=== PATIENT | male | born 1960 | race American Indian/Alaskan Native ===

== ENCOUNTER 2016-09-27 20:01 | Observation (INO) | payer SELFPAY ==
[2016-09-27 20:01] VITALS: BMI 30.8
--- NOTE | 2016-09-27 20:31 | C.PDOC ---
History Of Present Illness 55 year old male presents to the ED via EMS due to alcohol intoxication. Patient was refused admission to [facility] due to intoxication and has no complaints at this time. Chief Complaint (Nursing): Substance Abuse History Per: Patient, EMS History/Exam Limitations: no limitations Onset/Duration Of Symptoms: Hrs Current Symptoms Are (Timing): Still Present Suicide/Self Injury Attempted (Context): None Modifying Factor(s): Alcohol Severity: Mild Past Medical History Reviewed: Historical Data, Nursing Documentation, Vital Signs Vital Signs: Last Vital Signs Temp 98.9 F 09/27/16 23:51 Pulse 85 09/28/16 03:44 Resp 20 09/28/16 03:44 BP 132/70 09/28/16 03:44 Pulse Ox 99 09/28/16 03:44 - Medical History PMH: HIV, HTN - [facility] Procedures CONTINUOUS INVASIVE MECHANICAL VENTILATION =/>96 CONSEC HRS (08/24/14) INSERT ENDOTRACHEAL TUBE (08/24/14) Family History: States: Unknown Family Hx - Social History Hx Tobacco Use: No Hx Alcohol Use: Yes Hx Substance Use: No - Immunization History Hx Tetanus Toxoid Vaccination: No Hx Influenza Vaccination: No Hx Pneumococcal Vaccination: No Review Of Systems Except As Marked, All Systems Reviewed And Found Negative. Constitutional: Positive for: Other (+Intoxication). Negative for: Fever, Chills Cardiovascular: Negative for: Chest Pain Respiratory: Negative for: Shortness of Breath Gastrointestinal: Negative for: Abdominal Pain Neurological: Negative for: Weakness, Numbness Physical Exam - Physical Exam Appears: Non-toxic, No Acute Distress, Other (+Intoxicated +AOB. No signs of injury.) Skin: Normal Color, Warm, Dry Head: Atraumatic, Normacephalic Eye(s): bilateral: Normal Inspection Oral Mucosa: Moist Chest: Symmetrical Cardiovascular: Rhythm Regular Respiratory: Normal Breath Sounds, No Accessory Muscle Use Extremity: Normal ROM Neurological/Psych: Oriented x3 ED Course And Treatment - Laboratory Results Result Diagrams: 09/27/16 20:45 09/27/16 20:45 O2 Sat by Pulse Oximetry: 96 (Room air) Pulse Ox Interpretation: Normal ED OBSERVATION Date of observation admission: 09/27/16 Time of observation admission: 20:33 - Observation admission statement Patient is being placed in observation because:: Acute alcohol intoxication. - Goals of Observation Goals of observation are:: Sobriety. Disposition Counseled Patient/Family Regarding: Diagnosis - Disposition Disposition: HOME/ ROUTINE Disposition Time: 06:30 Condition: STABLE - POA Present On Arrival: None - Clinical Impression Clinical Impression: Alcohol abuse - Scribe Statement The provider has reviewed the documentation as recorded by the Scribe Robert Amador. Provider Attestation: All medical record entries made by the Scribe were at my direction and personally dictated by me. I have reviewed the chart and agree that the record accurately reflects my personal performance of the history, physical exam, medical decision making, and the department course for this patient. I have also personally directed, reviewed, and agree with the discharge instructions and disposition.
[2016-09-27 21:01] LABS: BASO % 0.5 % (0.0-2.0); EOS # 0.1 K/uL (0.0-0.7); EOS % 2.9 % (0.0-4.0); HEMATOCRIT 41.8 % (35.0-51.0); MEAN CELL VOLUME 84.2 fL (80.0-94.0); MEAN CORPUSCULAR HEMOGLOBIN 27.8 pg (27.0-31.0); MEAN PLATELET VOLUME 9.2 fL (7.2-11.7); MONO # 0.2 K/uL (0.0-0.8); MONO % 5.2 % (0.0-10.0); NRBC % 0.1 % (0.0-2.0); RED CELL DISTRIBUTION WIDTH 15.2 % (11.5-14.5); WHITE BLOOD COUNT 4.7 K/uL (4.8-10.8)
[2016-09-27 21:09] LABS: CHLORIDE 100 mmol/L (98-107); POTASSIUM 3.4 mmol/L (3.6-5.2); SODIUM 144 mmol/L (132-148)
[2016-09-27 21:11] LABS: GFR AFRICAN-AMERICAN > 60
[2016-09-27 21:12] LABS: ALB/GLOB RATIO 0.9 (1.0-2.1); ALKALINE PHOSPHATASE 89 U/L (38-126); ALT/SGPT 27 U/L (21-72); AST/SGOT 45 U/L (17-59); BILIRUBIN,TOTAL 0.2 mg/dL (0.2-1.3); BLOOD UREA NITROGEN 24 mg/dL (9-20); CARBON DIOXIDE 30 mmol/L (22-30); GLUCOSE,RANDOM 89 mg/dL (75-110); TOTAL PROTEIN 8.1 g/dL (6.3-8.3)
[2016-09-27 21:26] LABS: ALCOHOL SERUM 360 mg/dl (0-10)
[2016-09-27 23:52] VITALS: RESP 20; TEMP 98.9
[2016-09-28 06:14] VITALS: BP 142/68; PULSE 91; O2SAT 99
== END 2016-09-28 06:30 | disposition home or self-care (01) ==
LOC: C.ER 20:01 → C.9OBSV 20:55
PROVIDERS: ADMIT Emergency Medicine; ATTEND Emergency Medicine
DX: F10.129 Alcohol abuse with intoxication, unspecified (principal); I10 Essential (primary) hypertension; Z21 Asymptomatic human immunodeficiency virus [HIV] infection status

== ENCOUNTER 2016-10-28 22:30 | Observation (INO) | payer SELFPAY ==
[2016-10-28 22:31] VITALS: BMI 30.8
[2016-10-28 22:41] VITALS: TEMP 97.7; O2SAT 98
--- NOTE | 2016-10-28 22:49 | C.PDOC ---
History Of Present Illness The patient, a 55y/o male, presents to the ED for public alcohol intoxication for an unknown duration. Patient is familiar to the ED and has had many prior evaluations concerning alcohol intoxication. Patient admits to drinking earlier today. He denies suicidal/homicidal ideation and has no physical complaints at this time. Time Seen by Provider: 10/28/16 22:34 Chief Complaint (Nursing): Substance Abuse History Per: Patient History/Exam Limitations: intoxication Onset/Duration Of Symptoms: Unknown Current Symptoms Are (Timing): Still Present Suicide/Self Injury Attempted (Context): None Modifying Factor(s): Alcohol Associated Symptoms: denies: Suicidal Thoughts, Suicidal Plan Involuntary Hold By: None Recent travel outside of the [place]: No Additional History Per: Patient Past Medical History Reviewed: Historical Data, Nursing Documentation, Vital Signs Vital Signs: Last Vital Signs Temp 97.7 F 10/28/16 22:36 Pulse 84 10/28/16 22:36 Resp 20 10/28/16 22:36 BP 170/84 H 10/28/16 22:36 Pulse Ox 98 10/28/16 23:15 - Medical History PMH: HIV, HTN Surgical History: No Surg Hx - [facility] Procedures CONTINUOUS INVASIVE MECHANICAL VENTILATION =/>96 CONSEC HRS (08/24/14) INSERT ENDOTRACHEAL TUBE (08/24/14) Family History: States: Unknown Family Hx - Social History Hx Tobacco Use: No Hx Alcohol Use: Yes Hx Substance Use: No - Immunization History Hx Tetanus Toxoid Vaccination: No Hx Influenza Vaccination: No Hx Pneumococcal Vaccination: No Review Of Systems Except As Marked, All Systems Reviewed And Found Negative. Constitutional: Positive for: Other (+alcohol intoxication ) Psych: Negative for: Suicidal ideation Physical Exam - Physical Exam Additional Physical Exam Comments: Constitutional: No acute distress. Visibly intoxicated. Head: Normocephalic. Atraumatic. Eyes: PERRL. ENT: Moist mucous membranes. Alcohol on breath. Neck: Supple. Cardiovascular: Regular rate. Radial pulse 2+ bilaterally. Chest: No tenderness. Respiratory: Clear to auscultation bilaterally. GI: Soft. Nontender. Nondistended. Back: No CVA tenderness. Musculoskeletal: No tenderness or swelling of extremities. Skin: No rash. Neurologic: Arousable to touch and verbal stimuli. ED Course And Treatment O2 Sat by Pulse Oximetry: 98 (on RA) Pulse Ox Interpretation: Normal ED OBSERVATION Date of observation admission: 10/28/16 Time of observation admission: 23:15 - Observation admission statement Patient is being placed in observation because:: alcohol intoxication - Goals of Observation Goals of observation are:: sobriety - Progress Note Progress Note: 10/28/16 23:15 patient is resting comfortably, vitals are stable. 10/29/16 00:00 Will sign out to ER night team pending sobriety. Disposition - Disposition Disposition Time: 01:00 Condition: STABLE - Clinical Impression Clinical Impression: Alcohol intoxication - Scribe Statement The provider has reviewed the documentation as recorded by the Scribe (Bambi Quevedo) Provider Attestation: All medical record entries made by the Scribe were at my direction and personally dictated by me. I have reviewed the chart and agree that the record accurately reflects my personal performance of the history, physical exam, medical decision making, and the department course for this patient. I have also personally directed, reviewed, and agree with the discharge instructions and disposition.
[2016-10-29 05:42] VITALS: RESP 16
[2016-10-29 05:43] VITALS: BP 136/89; PULSE 84
== END 2016-10-29 05:32 | disposition home or self-care (01) ==
LOC: C.ER 22:30 → C.9OBSV 23:13
PROVIDERS: ADMIT Student in an Organized Health Care Education/Training Program; ATTEND Student in an Organized Health Care Education/Training Program
DX: F10.129 Alcohol abuse with intoxication, unspecified (principal); Y90.9 Presence of alcohol in blood, level not specified
CPT/HCPCS: G0378 ×2

== ENCOUNTER 2017-09-02 22:09 | Emergency (ER) | payer MEDICAID ==
[2017-09-02 22:09] VITALS: BMI 30.8
== END 2017-09-02 22:30 | disposition left against medical advice (07) ==
LOC: C.ER 22:09
DX: Z02.89 Encounter for other administrative examinations (principal); F10.129 Alcohol abuse with intoxication, unspecified

== ENCOUNTER 2017-09-02 23:45 | Emergency (ER) | payer MEDICAID ==
[2017-09-02 23:46] VITALS: BMI 30.8
[2017-09-03 00:27] VITALS: TEMP 97.5
[2017-09-03 00:56] VITALS: BP 157/86; PULSE 58; RESP 20; O2SAT 96
--- NOTE | 2017-09-03 01:08 | C.PDOC ---
History Of Present Illness 56 year old male presents to the ED for evaluation of acute alcohol intoxcation. Patient is poor historian due to alcohol intoxication. Last drink just prior to arrival. Patient states that he has elevated blood pressure and complains of headache. He denies chest pain. Chief Complaint (Nursing): High Blood Pressure History Per: Patient History/Exam Limitations: intoxication Onset/Duration Of Symptoms: Unknown Current Symptoms Are (Timing): Still Present Recent travel outside of the [place]: No Past Medical History Reviewed: Historical Data, Nursing Documentation, Vital Signs Vital Signs: Last Vital Signs Temp 97.5 F L 09/03/17 00:22 Pulse 58 L 09/03/17 00:55 Resp 20 09/03/17 00:55 BP 157/86 H 09/03/17 00:55 Pulse Ox 96 09/03/17 03:04 - Medical History PMH: HIV, HTN - [facility] Procedures CONTINUOUS INVASIVE MECHANICAL VENTILATION =/>96 CONSEC HRS (08/24/14) INSERT ENDOTRACHEAL TUBE (08/24/14) Family History: States: Unknown Family Hx - Social History Hx Tobacco Use: No Hx Alcohol Use: Yes Hx Substance Use: No - Immunization History Hx Tetanus Toxoid Vaccination: No Hx Influenza Vaccination: No Hx Pneumococcal Vaccination: No Review Of Systems Review Of Systems: ROS cannot be obtained secondary to pt's inabilty to answer questions. (alcohol intoxication) Neurological: Positive for: Headache Physical Exam - Physical Exam Appears: Non-toxic, No Acute Distress, Unkempt Skin: Normal Color, Warm, Dry Head: Atraumatic, Normacephalic Eye(s): bilateral: Normal Inspection, PERRL, EOMI Oral Mucosa: Moist, Other (Alcohol on breath) Neck: Normal, Normal ROM, Supple Chest: Symmetrical Cardiovascular: Rhythm Regular (Rate Regular ) Respiratory: Normal Breath Sounds, No Rales, No Rhonchi, No Wheezing Gastrointestinal/Abdominal: Soft, No Tenderness Back: Normal Inspection Extremity: Normal ROM, No Deformity Extremity: Bilateral: Atraumatic Neurological/Psych: Other (Somnolent but arousable to verbal stimuli, moving all extremities ) Gait: Unsteady ED Course And Treatment O2 Sat by Pulse Oximetry: 96 Progress Note: Patient resting comfortably. All vital signs stable. Will discharge home, Disposition Counseled Patient/Family Regarding: Diagnosis - Disposition Referrals: [facility] at [facility] [Outside] Disposition: HOME/ ROUTINE Disposition Time: 01:05 Condition: STABLE Instructions: High Blood Pressure in Adults, Alcohol Abuse and Alcoholism (DC) Forms: [employer] (Niuean) - POA Present On Arrival: None - Clinical Impression Clinical Impression: Hypertension, Alcohol abuse - Scribe Statement The provider has reviewed the documentation as recorded by the Scribe Provider Attestation: All medical record entries made by the Scribe were at my direction and personally dictated by me. I have reviewed the chart and agree that the record accurately reflects my personal performance of the history, physical exam, medical decision making, and the department course for this patient. I have also personally directed, reviewed, and agree with the discharge instructions and disposition.
== END 2017-09-03 01:26 | disposition home or self-care (01) ==
LOC: C.ER 23:45
DX: I10 Essential (primary) hypertension (principal); F10.10 Alcohol abuse, uncomplicated

== ENCOUNTER 2017-11-20 01:36 | Emergency (ER) | payer MEDICAID ==
[2017-11-20 01:37] VITALS: BMI 30.8
[2017-11-20 01:45] VITALS: BP 133/87; PULSE 76; RESP 18; TEMP 98.5; O2SAT 99
--- NOTE | 2017-11-20 02:26 | C.PDOC ---
History Of Present Illness 57 year old male presents to the ED c/o left ear pain. Patient reports he was cleaning his ears when the cotton from the Q-Tip got stuck in his left ear. Patient denies fever, chills, nausea, vomiting, ear discharge, earache or headache. Time Seen by Provider: 11/20/17 01:52 Chief Complaint (Nursing): Foreign Body History Per: Patient History/Exam Limitations: None Onset/Duration Of Symptoms: Hrs Current Symptoms Are (Timing): Gone Quality (Ear): Foreign Body Severity: None Anticoagulant/Antiplatlet Use?: No Recent Aspirin Use: No Past Medical History Reviewed: Historical Data, Nursing Documentation, Vital Signs Vital Signs: Last Vital Signs Temp 98.5 F 11/20/17 01:42 Pulse 76 11/20/17 01:42 Resp 18 11/20/17 01:42 BP 133/87 11/20/17 01:42 Pulse Ox 99 11/20/17 03:39 - Medical History PMH: HIV, HTN Surgical History: No Surg Hx - [facility] Procedures CONTINUOUS INVASIVE MECHANICAL VENTILATION =/>96 CONSEC HRS (08/24/14) INSERT ENDOTRACHEAL TUBE (08/24/14) Family History: States: Unknown Family Hx - Social History Hx Tobacco Use: No Hx Alcohol Use: Yes Hx Substance Use: No - Immunization History Hx Tetanus Toxoid Vaccination: No Hx Influenza Vaccination: No Hx Pneumococcal Vaccination: No Review Of Systems Constitutional: Negative for: Fever, Chills ENT: Positive for: Ear Pain Gastrointestinal: Negative for: Vomiting Neurological: Negative for: Headache, Dizziness Physical Exam - Physical Exam Appears: Non-toxic, No Acute Distress Skin: Normal Color, Warm, Dry Head: Atraumatic, Normacephalic Eye(s): bilateral: Normal Inspection, PERRL, EOMI Ear(s): Left: Other (FB visualized), Right: Normal Nose: No Discharge Oral Mucosa: Moist Neck: Normal ROM, Supple Cardiovascular: Rhythm Regular Respiratory: Normal Breath Sounds Neurological/Psych: Oriented x3, Normal Speech Gait: Steady ED Course And Treatment O2 Sat by Pulse Oximetry: 99 (ON RA) Pulse Ox Interpretation: Normal Progress Note: Patient had FB stuck in his left ear which was removed using an alligator forceps. 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 - Scribe Statement The provider has reviewed the documentation as recorded by the Scribe Eliel Ardon All medical record entries made by the Kelleyibe were at my direction and personally dictated by me. I have reviewed the chart and agree that the record accurately reflects my personal performance of the history, physical exam, medical decision making, and the department course for this patient. I have also personally directed, reviewed, and agree with the discharge instructions and disposition.
== END 2017-11-20 02:33 | disposition home or self-care (01) ==
LOC: C.ER 01:36
DX: T16.2XXA Foreign body in left ear, initial encounter (principal); X58.XXXA Exposure to other specified factors, initial encounter; Y93.E8 Activity, other personal hygiene

== ENCOUNTER 2017-12-19 17:06 | Emergency (ER) | payer MEDICAID ==
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
[2017-12-19 23:36] VITALS: BP 136/82; PULSE 86; RESP 16; TEMP 98.6; O2SAT 97
== END 2017-12-19 23:34 | disposition home or self-care (01) ==
LOC: EDBD → EDSEX → MERGE 17:06 → EDUNIT# 17:06 → UNMERGE 17:06 → EDBD 17:06 → C.ER 17:06
DX: F10.129 Alcohol abuse with intoxication, unspecified (principal)

== ENCOUNTER 2018-01-09 19:35 | Emergency (ER) | payer MEDICAID ==
[2018-01-09 19:35] VITALS: BMI 30.8
[2018-01-09 19:44] VITALS: RESP 14; TEMP 98; O2SAT 98
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
[2018-01-09 22:06] VITALS: BP 130/70; PULSE 80
--- NOTE | 2018-01-10 08:55 | RAD ---
PROCEDURE: Left Ankle Radiographs. HISTORY: fall COMPARISON: None FINDINGS: BONES: No fracture appreciated. Trace dorsal minimal hyperostoses suggested JOINTS: Normal. No osteoarthritis. Ankle mortise maintained. Talar dome intact SOFT TISSUES: Lateral perimalleolar soft tissue swelling present . OTHER FINDINGS: None. IMPRESSION: Soft tissue swelling. No fracture or dislocation appreciated .
== END 2018-01-09 22:06 | disposition home or self-care (01) ==
LOC: C.ER 19:35
DX: S93.402A Sprain of unspecified ligament of left ankle, initial encounter (principal); I10 Essential (primary) hypertension

== ENCOUNTER 2018-01-22 03:35 | Emergency (ER) | payer MEDICAID ==
[2018-01-22 03:35] VITALS: BMI 30.8
[2018-01-22 04:05] VITALS: O2SAT 96
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
[2018-01-22 06:31] VITALS: BP 126/85; PULSE 61; RESP 16; TEMP 97.9
== END 2018-01-22 07:01 | disposition home or self-care (01) ==
LOC: C.ER 03:35
DX: F10.129 Alcohol abuse with intoxication, unspecified (principal); I10 Essential (primary) hypertension

== ENCOUNTER 2018-01-28 22:38 | Emergency (ER) | payer MEDICAID ==
[2018-01-28 22:38] VITALS: BMI 30.8
[2018-01-28 22:44] VITALS: TEMP 97.9
--- NOTE | 2018-01-29 00:45 | C.PDOC ---
History Of Present Illness 57 y/o homeless male brought in by ambulance due to public intoxication. Patient has a PMHx of alcohol abuse, and admits to drinking today. Records demonstrate recent evaluation for the same on 01/09. Otherwise patient offers no physical complaints. Denies any SI/HI. No obvious signs of trauma. Time Seen by Provider: 01/28/18 23:14 Chief Complaint (Nursing): Substance Abuse History Per: Patient History/Exam Limitations: intoxication Onset/Duration Of Symptoms: Hrs Current Symptoms Are (Timing): Still Present Suicide/Self Injury Attempted (Context): None Modifying Factor(s): Alcohol Past Medical History Reviewed: Historical Data, Nursing Documentation, Vital Signs Vital Signs: Last Vital Signs Temp 97.9 F 01/28/18 22:41 Pulse 78 01/28/18 23:26 Resp 12 01/28/18 23:26 BP 178/85 H 01/28/18 23:26 Pulse Ox 96 01/29/18 00:47 - Medical History PMH: HIV, HTN Surgical History: No Surg Hx - [facility] Procedures CONTINUOUS INVASIVE MECHANICAL VENTILATION =/>96 CONSEC HRS (08/24/14) INSERT ENDOTRACHEAL TUBE (08/24/14) Family History: States: Unknown Family Hx - Social History Hx Tobacco Use: No Hx Alcohol Use: Yes Hx Substance Use: No - Immunization History Hx Tetanus Toxoid Vaccination: No Hx Influenza Vaccination: No Hx Pneumococcal Vaccination: No Review Of Systems Review Of Systems: ROS cannot be obtained secondary to pt's inabilty to answer questions. Physical Exam - Physical Exam Appears: Non-toxic, No Acute Distress, Other (Large male, intoxicated, +AOB) Skin: Normal Color, Warm, Dry Head: Atraumatic, Normacephalic Eye(s): bilateral: Normal Inspection Oral Mucosa: Moist Neck: Normal ROM Chest: Symmetrical Cardiovascular: Rhythm Regular, No Murmur Respiratory: Normal Breath Sounds, No Rales, No Rhonchi, No Wheezing Gastrointestinal/Abdominal: Soft, No Tenderness, No Distention Extremity: Bilateral: Atraumatic, Normal Color And Temperature, Normal ROM Pulses: Left Dorsalis Pedis: Normal, Right Dorsalis Pedis: Normal Neurological/Psych: Other (Awake, alert, responsive to questions) ED Course And Treatment O2 Sat by Pulse Oximetry: 96 (RA) Pulse Ox Interpretation: Normal Progress Note: Patient is resting comfortably in stretcher, no acute distress. Will d/c home when clinically sober. Medical Decision Making Medical Decision Making: typical alcoholic/intox/homeless no acute issues many presentations for same no w/u indicated at this time pending sobriety Disposition - Disposition Disposition Time: 01:00 Condition: GOOD Forms: [facility] (Austrian) - Clinical Impression Clinical Impression: Alcohol abuse - Scribe Statement The provider has reviewed the documentation as recorded by the Scribe (Denise Bhatia) Provider Attestation: All medical record entries made by the Scribe were at my direction and personally dictated by me. I have reviewed the chart and agree that the record accurately reflects my personal performance of the history, physical exam, medical decision making, and the department course for this patient. I have also personally directed, reviewed, and agree with the discharge instructions and disposition. Physician Patient Turnover Patient Signed Over To: Priya Sheehan Handoff Comments: dispo as appropriate in AM when sober
[2018-01-29 05:05] VITALS: BP 154/70; PULSE 60; RESP 18; O2SAT 99
== END 2018-01-29 05:04 | disposition home or self-care (01) ==
LOC: C.ER 22:38
DX: F10.10 Alcohol abuse, uncomplicated (principal)

== ENCOUNTER 2018-01-29 16:19 | Emergency (ER) | payer MEDICAID ==
[2018-01-29 16:20] VITALS: BMI 30.8
[2018-01-29 17:30] LABS: BASO # 0.1 K/uL (0.0-0.2); BASO % 1.1 % (0.0-2.0); EOS % 0.7 % (0.0-4.0); HEMOGLOBIN 13.1 g/dL (12.0-18.0); LYMPH # 2.4 K/uL (1.0-4.3); LYMPH % 43.9 % (20.0-40.0); MEAN CELL VOLUME 86.9 fL (80.0-94.0); MEAN CORPUSCULAR HEMOGLOBIN 29.7 pg (27.0-31.0); MEAN CORPUSCULAR HGB CONC 34.2 g/dL (33.0-37.0); MEAN PLATELET VOLUME 9.4 fL (7.2-11.7); MONO # 0.3 K/uL (0.0-0.8); MONO % 4.9 % (0.0-10.0); NEUT # 2.7 K/uL (1.8-7.0); NEUT % 49.4 % (50.0-75.0); NRBC % 0.1 % (0.0-2.0); RBC 4.43 Mil/uL (4.40-5.90); RED CELL DISTRIBUTION WIDTH 13.4 % (11.5-14.5); WHITE BLOOD COUNT 5.4 K/uL (4.8-10.8)
[2018-01-29 17:45] LABS: ALB/GLOB RATIO 1.1 (1.0-2.1); ALT/SGPT 27 U/L (21-72); AST/SGOT 48 U/L (17-59); BLOOD UREA NITROGEN 20 mg/dL (9-20); CALCIUM 8.3 mg/dl (8.6-10.4); GFR AFRICAN-AMERICAN > 60; GFR NON-AFRICAN AMERICAN 53
[2018-01-29 18:04] LABS: SQUAMOUS EPITHIAL 1 /hpf (0-5); URINE BILIRUBIN NEGATIVE (NEGATIVE); URINE BLOOD 1+ (NEGATIVE); URINE CLARITY Clear (Clear); URINE COLOR Straw (YELLOW); URINE GLUCOSE (UA) NORMAL (Normal); URINE HYALINE CAST 0-2 /lpf (0-2); URINE LEUKOCYTE ESTERASE NEG Leu/uL (Negative); URINE PROTEIN NEGATIVE (NEGATIVE); URINE UROBILINOGEN NORMAL mg/dL (0.2-1.0)
[2018-01-29 18:15] LABS: BARBITURATES, UR NEGATIVE (NEGATIVE); BENZODIAZEPINES, UR NEGATIVE (NEGATIVE); OPIATES, UR NEGATIVE (NEGATIVE); PHENCYCLIDINE, UR NEGATIVE (NEGATIVE)
--- NOTE | 2018-01-29 18:21 | C.PDOC ---
History Of Present Illness 57yo male, PMHx includes alcohol abuse, presents to the emergency department requesting detox. patient admits to drinking [employer]. Denies SI/HI. Time Seen by Provider: 01/29/18 16:58 Chief Complaint (Nursing): Substance Abuse History Per: Patient History/Exam Limitations: no limitations Past Medical History Reviewed: Historical Data, Nursing Documentation, Vital Signs Vital Signs: Last Vital Signs Temp 98.5 F 01/29/18 16:24 Pulse 97 H 01/29/18 16:24 Resp 20 01/29/18 16:24 BP 147/85 01/29/18 16:24 Pulse Ox 97 01/29/18 18:21 - Medical History PMH: HIV, HTN - [facility] Procedures CONTINUOUS INVASIVE MECHANICAL VENTILATION =/>96 CONSEC HRS (08/24/14) INSERT ENDOTRACHEAL TUBE (08/24/14) Family History: States: No Known Family Hx - Social History Hx Tobacco Use: No Hx Alcohol Use: Yes Hx Substance Use: No - Immunization History Hx Tetanus Toxoid Vaccination: No Hx Influenza Vaccination: No Hx Pneumococcal Vaccination: No Review Of Systems Constitutional: Negative for: Fever Cardiovascular: Negative for: Chest Pain Respiratory: Negative for: Shortness of Breath Psych: Negative for: Psychosis, Suicidal ideation, Withdrawal Physical Exam - Physical Exam Appears: Non-toxic, No Acute Distress Skin: Normal Color, Warm, Dry, No Rash Head: Atraumatic, Normacephalic Eye(s): bilateral: Normal Inspection, PERRL, EOMI Nose: Normal Lips: Normal Appearing Neck: Normal ROM Cardiovascular: Rhythm Regular, No Murmur Respiratory: Normal Breath Sounds, No Accessory Muscle Use Gastrointestinal/Abdominal: Soft, No Tenderness Extremity: Normal ROM, No Deformity, No Swelling Neurological/Psych: Oriented x3, Normal Speech ED Course And Treatment - Laboratory Results Result Diagrams: 01/29/18 17:27 01/29/18 17:27 O2 Sat by Pulse Oximetry: 97 (RA) Pulse Ox Interpretation: Normal Medical Decision Making Medical Decision Making: alcohol intoxication/detox - case s/o to Dr. Salas at 1900 pending crisis evaluation and disposition Patient is medically cleared for crisis Disposition - Disposition Disposition Time: 19:00 Condition: FAIR Forms: [employer] [facility] (Serbian) - Clinical Impression Clinical Impression: Alcohol abuse - Scribe Statement The provider has reviewed the documentation as recorded by the Scribe (Yunier Bowser) All medical record entries made by the Scribe were at my direction and personally dictated by me. I have reviewed the chart and agree that the record accurately reflects my personal performance of the history, physical exam, medical decision making, and the department course for this patient. I have also personally directed, reviewed, and agree with the discharge instructions and disposition. Physician Patient Turnover Patient Signed Over To: Natan Salas Handoff Comments: pending crisis evaluation
[2018-01-29 19:32] VITALS: BP 126/73; PULSE 78; RESP 18; TEMP 98.4; O2SAT 98
== END 2018-01-29 19:33 | disposition home or self-care (01) ==
LOC: C.ER 16:19
DX: F10.10 Alcohol abuse, uncomplicated (principal); Y90.8 Blood alcohol level of 240 mg/100 ml or more

== ENCOUNTER 2018-02-11 01:30 | Emergency (ER) | payer MEDICAID ==
[2018-02-11 01:31] VITALS: BMI 30.8
--- NOTE | 2018-02-11 02:19 | C.PDOC ---
History Of Present Illness 57 year old male is brought to the ED by EMS for alcohol intoxication. Patient was found at [facility] terminal intoxicated. Patient admits ti drinking alcohol today and states he does not have a place to go. Patient denies SI/HI, hallucinations, CP, SOB, trauma, injury, fall. Time Seen by Provider: 02/11/18 01:43 Chief Complaint (Nursing): Substance Abuse History Per: Patient, EMS History/Exam Limitations: intoxication Onset/Duration Of Symptoms: Hrs Current Symptoms Are (Timing): Still Present Suicide/Self Injury Attempted (Context): None Modifying Factor(s): Alcohol Associated Symptoms: denies: Depression, Suicidal Thoughts, Suicidal Plan Involuntary Hold By: None Recent travel outside of the [place]: No Additional History Per: Patient, EMS Past Medical History Reviewed: Historical Data, Nursing Documentation, Vital Signs Vital Signs: Last Vital Signs Temp 98 F 02/11/18 01:38 Pulse 68 02/11/18 01:38 Resp 18 02/11/18 01:38 BP 158/96 H 02/11/18 01:38 Pulse Ox 97 02/11/18 02:19 - Medical History PMH: HIV, HTN Surgical History: No Surg Hx - [facility] Procedures CONTINUOUS INVASIVE MECHANICAL VENTILATION =/>96 CONSEC HRS (08/24/14) INSERT ENDOTRACHEAL TUBE (08/24/14) Family History: States: Unknown Family Hx - Social History Hx Tobacco Use: No Hx Alcohol Use: Yes Hx Substance Use: No - Immunization History Hx Tetanus Toxoid Vaccination: No Hx Influenza Vaccination: No Hx Pneumococcal Vaccination: No Review Of Systems Except As Marked, All Systems Reviewed And Found Negative. Psych: Negative for: Depression, Suicidal ideation Physical Exam - Physical Exam Additional Physical Exam Comments: Constitutional: No acute distress. Head: Normocephalic. Atraumatic. Eyes: PERRL. ENT: Moist mucous membranes. Neck: Supple. Cardiovascular: Regular rate. Radial pulses 2+ bilaterally. Chest: No tenderness. Respiratory: Clear to auscultation bilaterally. GI: Soft. Nontender. Nondistended. Back: No CVA tenderness. Musculoskeletal: No tenderness or swelling of extremities. Skin: No rash. Neurologic: Alert, no focal deficit. ED Course And Treatment O2 Sat by Pulse Oximetry: 97 (ON RA) Pulse Ox Interpretation: Normal Medical Decision Making Medical Decision Making: Will observe and then discharge when sober. Disposition - Disposition Referrals: Non [facility] Provider, [Primary Care Provider] - Disposition: HOME/ ROUTINE Disposition Time: 03:31 Condition: STABLE Instructions: Alcohol Abuse and Alcoholism (DC) Forms: [facility] (Andorran) - Clinical Impression Clinical Impression: Alcohol intoxication - Scribe Statement The provider has reviewed the documentation as recorded by the Scribe Eliel Ardon All medical record entries made by the Scribe were at my direction and personally dictated by me. I have reviewed the chart and agree that the record accurately reflects my personal performance of the history, physical exam, medical decision making, and the department course for this patient. I have also personally directed, reviewed, and agree with the discharge instructions and disposition.
[2018-02-11 05:47] VITALS: BP 136/85; PULSE 82; RESP 18; TEMP 98.2; O2SAT 97
== END 2018-02-11 06:08 | disposition home or self-care (01) ==
LOC: C.ER 01:30 → SUPCPDRO 01:30 → C.ER 06:08
DX: F10.129 Alcohol abuse with intoxication, unspecified (principal); Y90.9 Presence of alcohol in blood, level not specified

== ENCOUNTER 2018-03-06 19:24 | Emergency (ER) | payer MEDICAID ==
[2018-03-06 19:24] VITALS: BMI 30.8
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
[2018-03-07 05:45] VITALS: BP 168/71; PULSE 79; RESP 29; TEMP 98; O2SAT 98
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
== END 2018-03-07 05:46 | disposition home or self-care (01) ==
LOC: C.ER 19:24
DX: F10.129 Alcohol abuse with intoxication, unspecified (principal); S02.81XA Fracture of other specified skull and facial bones, right side, initial encounter for closed fracture; Y04.0XXA Assault by unarmed brawl or fight, initial encounter; G93.9 Disorder of brain, unspecified; I10 Essential (primary) hypertension; Z21 Asymptomatic human immunodeficiency virus [HIV] infection status

== ENCOUNTER 2018-04-10 19:50 | Emergency (ER) | payer MEDICAID ==
[2018-04-10 19:50] VITALS: BMI 30.8
[2018-04-10 21:26] VITALS: O2SAT 98
--- NOTE | 2018-04-10 21:58 | C.PDOC ---
History Of Present Illness 57 year old male is brought to the ED for alcohol intoxication. Patient states he has high blood pressure. Patient reports he has not take his medications for the past few days. Patient denies fever, chills, headache, visual changes, nausea, vomit, CP, palpitations, weakness, numbness. Chief Complaint (Nursing): Substance Abuse History Per: Patient History/Exam Limitations: intoxication Onset/Duration Of Symptoms: Days Current Symptoms Are (Timing): Still Present Modifying Factor(s): Alcohol Associated Symptoms: denies: Depression, Suicidal Thoughts, Suicidal Plan Recent travel outside of the [place]: No Additional History Per: Patient Past Medical History Reviewed: Historical Data, Nursing Documentation, Vital Signs Vital Signs: Last Vital Signs Temp 98.7 F 04/10/18 21:18 Pulse 85 04/10/18 21:18 Resp 20 04/10/18 21:18 BP 165/114 H 04/10/18 21:18 Pulse Ox 98 04/10/18 21:18 - Medical History PMH: HIV, HTN Surgical History: No Surg Hx - [facility] Procedures CONTINUOUS INVASIVE MECHANICAL VENTILATION =/>96 CONSEC HRS (08/24/14) INSERT ENDOTRACHEAL TUBE (08/24/14) Family History: States: Unknown Family Hx - Social History Hx Tobacco Use: No Hx Alcohol Use: Yes Hx Substance Use: No - Immunization History Hx Tetanus Toxoid Vaccination: No Hx Influenza Vaccination: No Hx Pneumococcal Vaccination: No Review Of Systems Constitutional: Negative for: Fever, Chills Eyes: Negative for: Vision Change Cardiovascular: Negative for: Chest Pain, Palpitations Respiratory: Negative for: Shortness of Breath Gastrointestinal: Negative for: Nausea, Vomiting Skin: Negative for: Rash Neurological: Negative for: Weakness, Numbness Physical Exam - Physical Exam Appears: Non-toxic, No Acute Distress, Other (AOB) Skin: Normal Color, Warm, Dry Head: Atraumatic, Normacephalic Eye(s): bilateral: Normal Inspection Oral Mucosa: Moist Neck: Normal ROM, Supple Chest: Symmetrical Cardiovascular: Rhythm Regular Respiratory: Normal Breath Sounds, No Rales, No Rhonchi, No Wheezing Gastrointestinal/Abdominal: Soft, No Tenderness, No Guarding, No Rebound Extremity: Normal ROM, No Tenderness, No Swelling Neurological/Psych: Oriented x3, Normal Speech Gait: Steady ED Course And Treatment O2 Sat by Pulse Oximetry: 98 (ON RA) Pulse Ox Interpretation: Normal Medical Decision Making Medical Decision Making: Plan: * Lopressor 100 mg PO * Disposition Counseled Patient/Family Regarding: Diagnosis - Disposition Referrals: [facility] [Outside] Disposition: HOME/ ROUTINE Disposition Time: 22:54 Condition: STABLE Instructions: High Blood Pressure (DC), Alcohol Abuse and Alcoholism (DC) Forms: [employer] [facility] (American) - POA Present On Arrival: None - Clinical Impression Clinical Impression: Alcohol abuse, Alcohol intoxication, Hypertension - Scribe Statement The provider has reviewed the documentation as recorded by the Scribe Eliel Ardon All medical record entries made by the Scribe were at my direction and personally dictated by me. I have reviewed the chart and agree that the record accurately reflects my personal performance of the history, physical exam, medical decision making, and the department course for this patient. I have also personally directed, reviewed, and agree with the discharge instructions and disposition.
[2018-04-10 23:09] VITALS: BP 144/68; PULSE 74; RESP 16; TEMP 97.7
== END 2018-04-10 23:23 | disposition home or self-care (01) ==
LOC: C.ER 19:50
DX: F10.129 Alcohol abuse with intoxication, unspecified (principal); Y90.9 Presence of alcohol in blood, level not specified; I10 Essential (primary) hypertension

== ENCOUNTER 2018-05-14 16:14 | Emergency (ER) | payer MEDICAID ==
[2018-05-14 16:15] VITALS: BMI 30.8
--- NOTE | 2018-05-14 18:19 | C.PDOC ---
History Of Present Illness 57 y/o male brought to the ED by ambulance after he was found intoxicated lying in the street. Patient admits to drinking alcohol today. Denies any falls or other complaints. No evidence of trauma. Time Seen by Provider: 05/14/18 16:51 Chief Complaint (Nursing): Substance Abuse History Per: Patient History/Exam Limitations: intoxication Onset/Duration Of Symptoms: Hrs Current Symptoms Are (Timing): Still Present Modifying Factor(s): Alcohol Involuntary Hold By: None Past Medical History Reviewed: Historical Data, Nursing Documentation, Vital Signs Vital Signs: Last Vital Signs Temp 97.8 F 05/14/18 16:53 Pulse 92 H 05/14/18 16:53 Resp 20 05/14/18 16:53 BP 186/89 H 05/14/18 16:53 Pulse Ox 97 05/14/18 16:53 - Medical History PMH: HIV, HTN Surgical History: No Surg Hx - [facility] Procedures CONTINUOUS INVASIVE MECHANICAL VENTILATION =/>96 CONSEC HRS (08/24/14) INSERT ENDOTRACHEAL TUBE (08/24/14) Family History: States: Unknown Family Hx - Social History Hx Tobacco Use: Yes Hx Alcohol Use: Yes Hx Substance Use: No - Immunization History Hx Tetanus Toxoid Vaccination: No Hx Influenza Vaccination: No Hx Pneumococcal Vaccination: No Review Of Systems Except As Marked, All Systems Reviewed And Found Negative. Constitutional: Negative for: Fever Cardiovascular: Negative for: Chest Pain Respiratory: Negative for: Shortness of Breath Gastrointestinal: Negative for: Vomiting, Abdominal Pain Skin: Negative for: Lesions, Bruising Neurological: Negative for: Weakness, Numbness Psych: Positive for: Other (Alcohol intoxication). Negative for: Suicidal ideation Physical Exam - Physical Exam Appears: No Acute Distress, Unkempt, Other (+ Alcohol on breath) Skin: Warm, Dry Head: Atraumatic, Normacephalic Eye(s): bilateral: Normal Inspection Oral Mucosa: Moist Neck: Normal ROM, Supple Chest: Symmetrical Cardiovascular: Rhythm Regular, No Murmur Respiratory: Normal Breath Sounds, No Accessory Muscle Use Gastrointestinal/Abdominal: Soft, No Tenderness, No Distention Extremity: Bilateral: Atraumatic, Normal Color And Temperature Neurological/Psych: Oriented x3, Normal Speech (speaking in full sentences), Normal Cranial Nerves ED Course And Treatment O2 Sat by Pulse Oximetry: 97 (RA) Pulse Ox Interpretation: Normal Medical Decision Making Medical Decision Making: Plan: * will monitor in the ED for clinical sobriety 21:38 On reevaluation patient is awake, alert, with clear speech, ambulating in the ED with steady gait. No complaints offered. Patient is stable for discharge home. Patient's BP was 158/88 stable for D/C Disposition Counseled Patient/Family Regarding: Studies Performed, Diagnosis, Need For Followup - Disposition Disposition: HOME/ ROUTINE Disposition Time: 21:43 Condition: STABLE Additional Instructions: DIPESH MONREAL, thank you for letting us take care of you today. Your provider was Alysha Montanez MD and you were treated for SUBSTANCE ABUSE. The emergency medical care you received today was directed at your acute symptoms. If you were prescribed any medication, please fill it and take as directed. It may take several days for your symptoms to resolve. Return to the Emergency Department if your symptoms worsen, do not improve, or if you have any other problems. Please contact your doctor or call one of the physicians/clinics you have been referred to that are listed on the Patient Visit Information form that is included in your discharge packet. Bring any paperwork you were given at discharge with you along with any medications you are taking to your follow up visit. Our treatment cannot replace ongoing medical care by a primary care provider outside of the emergency department. Thank you for allowing the [facility] team to be part of your care today. Instructions: Alcohol Abuse and Alcoholism (DC) Forms: W[place]in (Wolof), General Discharge Instructions - POA Present On Arrival: None - Clinical Impression Clinical Impression: Alcohol intoxication - Scribe Statement The provider has reviewed the documentation as recorded by the Bruce Bhatia Provider Attestation: All medical record entries made by the Bruce were at my direction and personally dictated by me. I have reviewed the chart and agree that the record accurately reflects my personal performance of the history, physical exam, medical decision making, and the department course for this patient. I have also personally directed, reviewed, and agree with the discharge instructions and disposition.
[2018-05-14 21:54] VITALS: BP 158/88; PULSE 86; RESP 16; TEMP 97.9
[2018-05-14 21:56] VITALS: O2SAT 97
== END 2018-05-14 21:54 | disposition home or self-care (01) ==
LOC: C.ER 16:14
DX: F10.129 Alcohol abuse with intoxication, unspecified (principal)

== ENCOUNTER 2018-06-25 13:32 | Observation (INO) | payer MEDICAID ==
[2018-06-25 13:32] VITALS: BMI 30.8
[2018-06-25] MEDS ORDERED: Multivitamin (MVI) 10 ML, Thiamine 100 MG, Folic Acid 1 MG in Sodium Chloride 0.9% 1,00... IV ONE (13:48)
[2018-06-25] MEDS ORDERED: Potassium Chloride 20 mEq ER Tab PO STA (13:50)
--- NOTE | 2018-06-25 14:11 | C.PDOC ---
History Of Present Illness 57 y/o male with a PMHx of HTN, HIV, and alcohol abuse, presents today with complaints of generalized weakness and intermittent chest pain. Patient went to [facility] for a check-up where his blood pressure was found to be elevated and he was instructed to come to the ER for further evaluation. Otherwise he denies any SOB, headache, dizziness, palpitations, nausea, vomiting, or fever. Patients only compliant is generalized weakness, which he states he always has. He reports compliance with his medications. Patient was at the clinic to get medical clearance to begin a substance abuse program. PMD: [facility] Time Seen by Provider: 06/25/18 13:38 Chief Complaint (Nursing): Chest Pain History Per: Patient History/Exam Limitations: no limitations Onset/Duration Of Symptoms: Days Current Symptoms Are (Timing): Still Present Past Medical History Reviewed: Historical Data, Nursing Documentation, Vital Signs Vital Signs: Last Vital Signs Temp 97 F L 06/25/18 13:38 Pulse 79 06/25/18 14:02 Resp 20 06/25/18 14:02 BP 177/80 H 06/25/18 14:02 Pulse Ox 100 06/25/18 14:02 - Medical History PMH: HIV, HTN - [facility] Procedures CONTINUOUS INVASIVE MECHANICAL VENTILATION =/>96 CONSEC HRS (08/24/14) INSERT ENDOTRACHEAL TUBE (08/24/14) Family History: States: CAD - Social History Hx Tobacco Use: Yes Hx Alcohol Use: Yes (daily) Hx Substance Use: No - Immunization History Hx Tetanus Toxoid Vaccination: No Hx Influenza Vaccination: No Hx Pneumococcal Vaccination: No Review Of Systems Except As Marked, All Systems Reviewed And Found Negative. Constitutional: Positive for: Weakness (generalized). Negative for: Fever, Chills Cardiovascular: Negative for: Chest Pain, Palpitations Respiratory: Negative for: Shortness of Breath Gastrointestinal: Negative for: Nausea, Vomiting Neurological: Negative for: Numbness, Incoordination, Change in Speech, Confusion, Altered Mental Status, Headache, Dizziness Physical Exam - Physical Exam Appears: Non-toxic, No Acute Distress, Other (Tired-appearing) Skin: Warm, Dry Head: Atraumatic, Normacephalic Eye(s): bilateral: Normal Inspection, PERRL, EOMI Oral Mucosa: Moist Lips: Normal Appearing Neck: Normal ROM Lymphatic: No Adenopathy Chest: Symmetrical Cardiovascular: Rhythm Regular (and bradycardic), No Murmur Respiratory: Normal Breath Sounds, No Rales, No Rhonchi, No Wheezing Gastrointestinal/Abdominal: Soft, No Tenderness, No Distention Back: Normal Inspection, No Decreased ROM Extremity: Normal ROM, No Pedal Edema Pulses: Left Radial: Normal, Right Radial: Normal Neurological/Psych: Oriented x3, Normal Motor, Normal Sensation ED Course And Treatment - Laboratory Results Result Diagrams: 06/25/18 14:05 06/25/18 14:05 ECG: Interpreted By Me ECG Rhythm: Sinus Bradycardia Interpretation Of ECG: diffusely flattened T waves Rate From EC O2 Sat by Pulse Oximetry: 100 (RA) Pulse Ox Interpretation: Normal Medical Decision Making Medical Decision Making: Records reviewed: Reviewed EKG from the clinic showing HR of 43, with a prolonged QT interval of 461. Impression: Weakness, Chest Pain, Bradycardia, Uncontrolled HTN Plan: --EKG --CMP --Troponin I --Pro-BNP --Phosphorous --Magnesium --Alcohol serum --CBC --PTT/PT --Urinalysis --Chest x-ray --IV fluids, banana bag --topical NTG --325 mg Aspirin PO --Reassess EKG: Sinus Bradycardia, at 55 bpm, with diffusely flattened T waves Chest X-Ray: FINDINGS: LUNGS: Hyperinflation may be seen in setting of COPD. No focal consolidation. Bilateral lower lobe nodular opacities favored to represent nipple shadows. Please note that chest x-ray has limited sensitivity for the detection of pulmonary masses. PLEURA: No significant pleural effusion identified. No definite pneumothorax . CARDIOVASCULAR: Heart size appears within normal limits. No atherosclerotic calcification present. OSSEOUS STRUCTURES: Degenerative changes. VISUALIZED UPPER ABDOMEN: Eventration of the right hemidiaphragm. OTHER FINDINGS: None. IMPRESSION: Hyperinflation may be seen in the setting of COPD. Bilateral lower lobe nodular opacities favored to represent nipple shadows. Additional findings as above. Labs demonstrate hypokalemia, but are otherwise unremarkable. Replenished with potassium chloride, 20meq PO and 20 meq IVPB. 15:[address] Kent, patient to be admitted to medical service for hospitalization for chest pain, hypokalemia, and uncontrolled hypertension. Disposition Counseled Patient/Family Regarding: Studies Performed, Diagnosis - Disposition Disposition: HOSPITALIZED Disposition Time: 15:39 Condition: GUARDED - Clinical Impression Clinical Impression: HTN (hypertension), Hypokalemia, Chest pain - Scribe Statement The provider has reviewed the documentation as recorded by the Scribkimani Bhatia Provider Attestation: All medical record entries made by the Kelleyibe were at my direction and persona lly dictated by me. I have reviewed the chart and agree that the record accurately reflects my personal performance of the history, physical exam, medical decision making, and the department course for this patient. I have also personally directed, reviewed, and agree with the discharge instructions and disposition.
[2018-06-25 14:17] LABS: PROTHROMBIN TIME 11.4 SECONDS (9.7-12.2)
[2018-06-25 14:18] LABS: BASO % 0.4 % (0.0-2.0); EOS # 0.1 K/uL (0.0-0.7); EOS % 2.1 % (0.0-4.0); HEMOGLOBIN 13.7 g/dL (12.0-18.0); LYMPH # 1.6 K/uL (1.0-4.3); LYMPH % 37.4 % (20.0-40.0); MEAN CORPUSCULAR HGB CONC 33.3 g/dL (33.0-37.0); MEAN PLATELET VOLUME 10.1 fL (7.2-11.7); MONO # 0.4 K/uL (0.0-0.8); MONO % 8.9 % (0.0-10.0); NEUT # 2.2 K/uL (1.8-7.0); NEUT % 51.2 % (50.0-75.0); NRBC % 0.1 % (0.0-2.0); RBC 4.73 Mil/uL (4.40-5.90); RED CELL DISTRIBUTION WIDTH 13.8 % (11.5-14.5); WHITE BLOOD COUNT 4.4 K/uL (4.8-10.8)
[2018-06-25 14:31] LABS: ALBUMIN 3.5 g/dL (3.5-5.0); ALT/SGPT 25 U/L (21-72); AST/SGOT 28 U/L (17-59); BLOOD UREA NITROGEN 17 mg/dL (9-20); CALCIUM 8.1 mg/dl (8.6-10.4); GFR NON-AFRICAN AMERICAN > 60
[2018-06-25 14:37] LABS: B-TYPE NATRIURETIC PEPTIDE 255 pg/mL (0-900)
--- NOTE | 2018-06-25 14:40 | RAD ---
HISTORY: SOB COMPARISON: Chest x-ray performed 09/07/14 TECHNIQUE: Chest PA and lateral FINDINGS: LUNGS: Hyperinflation may be seen in setting of COPD. No focal consolidation. Bilateral lower lobe nodular opacities favored to represent nipple shadows. Please note that chest x-ray has limited sensitivity for the detection of pulmonary masses. PLEURA: No significant pleural effusion identified. No definite pneumothorax . CARDIOVASCULAR: Heart size appears within normal limits. No atherosclerotic calcification present. OSSEOUS STRUCTURES: Degenerative changes. VISUALIZED UPPER ABDOMEN: Eventration of the right hemidiaphragm. OTHER FINDINGS: None. IMPRESSION: Hyperinflation may be seen in the setting of COPD. Bilateral lower lobe nodular opacities favored to represent nipple shadows. Additional findings as above.
[2018-06-25] MEDS ORDERED: Potassium Chloride 20 mEq ER Tab PO ONE (14:46)
[2018-06-25] MEDS ORDERED: Potassium Chloride 20 mEq 100 ML ONE (15:14)
[2018-06-25] MEDS ORDERED: Nitroglycerin 2% Ointment Foilpak UD TOP STA (15:36)
[2018-06-25] MEDS ORDERED: Aspirin 325 mg EC Tablets PO STA (15:36)
[2018-06-25] MEDS ORDERED: Aspirin 325 mg EC Tablets PO ONE (15:54)
[2018-06-25] MEDS ORDERED: Nitroglycerin 2% Ointment Foilpak UD TOP ONE (15:54)
--- NOTE | 2018-06-25 17:00 | CP.PCM.HP ---
History of Present Illness - History of Present Illness History of Present Illness: PGY-1 Medicine H&P for Dr. Kent Patient is a 57 year old male with past medical history of HTN, HIV, and alcohol abuse presenting to ED from [facility] for uncontrolled hypertension and hypokalemia. Patient states he was at clinic to obtain medical clearance for substance abuse program. Blood pressure was el evated, labs were abnormal, and he was told to come to the ED. He denies any chest pain, palpitations, shortness of breath, or dizziness currently. When asked if he felt chest pain or palpitations while at the clinic, he denied. No other acute somatic complaints at this time. Denies fevers/chills, headaches, dizziness, abdominal pain, nausea/vomiting/diarrhea/constipation, dysuria, or changes in stool. PMHx: uncontrolled HTN, HIV, alcohol abuse requiring intubation in past PSHx: intubated (08/2014) Allergies: NKDA FHx: CAD, [place]--mother, from [place] Social Hx: + alcohol--days vary. can drink anywhere from 1 shot of liquor/day to 1-1.5 pints; + tobacco: 5-10 cigarettes/day; denies illicit drug use PMD: Dr. Denise Allen (?); also follows up at [facility] Present on Admission - Present on Admission Any Indicators Present on Admission: No Review of Systems - Review of Systems All systems: reviewed and no additional remarkable complaints except Review of Systems: as per HPI Past Patient History - Infectious Disease Hx of Infectious Diseases: None - Tetanus Immunizations Tetanus Immunization: Unknown - Past Social History Smoking Status: Heavy Smoker > 10 Cigarettes Daily - CARDIAC Hx Hypertension: Yes - PULMONARY Hx Tuberculosis: No - NEUROLOGICAL HX Cerebrovascular Accident: No - HEMATOLOGICAL/ONCOLOGICAL Hx Human Immunodeficiency Virus (HIV): Yes - MUSCULOSKELETAL/RHEUMATOLOGICAL Hx Falls: No - PSYCHIATRIC Hx Substance Use: No - SURGICAL HISTORY Hx Surgeries: No - ANESTHESIA Hx Anesthesia: No Meds Allergies/Adverse Reactions: Allergies Allergy/AdvReac Type Severity Reaction Status Date / Time No Known Allergies Allergy Verified 06/25/18 13:41 Physical Exam - Constitutional Appears: No Acute Distress, Other Additional comments: drowsy but arousable - Head Exam Head Exam: ATRAUMATIC, NORMAL INSPECTION, NORMOCEPHALIC - Eye Exam Eye Exam: EOMI, Normal appearance, PERRL - ENT Exam ENT Exam: Normal Exam - Neck Exam Neck exam: Positive for: Full Rom, Normal Inspection - Respiratory Exam Respiratory Exam: Clear to Auscultation Bilateral, NORMAL BREATHING PATTERN. absent: Accessory Muscle Use, Rales, Rhonchi, Wheezes, Respiratory Distress, Stridor - Cardiovascular Exam Cardiovascular Exam: Bradycardia, +S1, +S2 - GI/Abdominal Exam GI & Abdominal Exam: Normal Bowel Sounds, Soft. absent: Distended, Firm, Guarding, Organomegaly, Rebound, Rigid, Tenderness - Neurological Exam Neurological exam: Alert, Oriented x3 - Psychiatric Exam Psychiatric exam: Normal Mood - Skin Skin Exam: Dry, Intact, Warm Results - Vital Signs Recent Vital Signs: Last Vital Signs Temp 97 F L 06/25/18 13:38 Pulse 50 L 06/25/18 15:30 Resp 16 06/25/18 15:30 BP 182/94 H 06/25/18 15:30 Pulse Ox 100 06/25/18 15:55 - Labs Result Diagrams: 06/25/18 14:05 06/25/18 14:05 Labs: Laboratory Results - last 24 hr 06/25/18 06/25/18 06/25/18 14:05 14:05 14:05 WBC 4.4 L RBC 4.73 Hgb 13.7 Hct 41.2 MCV 87.0 MCH 29.0 MCHC 33.3 RDW 13.8 Plt Count 180 MPV 10.1 Neut % (Auto) 51.2 Lymph % (Auto) 37.4 [place] % (Auto) 8.9 Eos % (Auto) 2.1 Baso % (Auto) 0.4 Neut # (Auto) 2.2 Lymph # (Auto) 1.6 [place] # (Auto) 0.4 Eos # (Auto) 0.1 Baso # (Auto) 0.0 PT 11.4 INR 1.0 APTT 30 Sodium 138 Potassium 3.0 L Chloride 103 Carbon Dioxide 29 Anion Gap 9 L BUN 17 Creatinine 1.2 Est GFR ( Amer) > 60 Est GFR (Non-Af Amer) > 60 Random Glucose 175 H Calcium 8.1 L Phosphorus 2.5 Magnesium 1.8 Total Bilirubin 0.4 AST 28 ALT 25 Alkaline Phosphatase 67 Troponin I 0.0130 NT-Pro-B Natriuret Pep 255 Total Protein 7.1 Albumin 3.5 Globulin 3.6 Albumin/Globulin Ratio 1.0 Alcohol, Quantitative < 10 Assessment & Plan - Assessment and Plan (Free Text) Assessment: 57 year old M with pmhx of uncontrolled HTN, HIV, alcohol abuse presenting with uncontrolled hypertension, hypokalemia, intermittent chest discomfort, r/o ACS. Plan: Intermittent chest pain, r/o ACS -s/p 325 mg ASA PO in ED -trop x 1 negative -BNP wnl -EKG: sinus iker at 55bpm with diffuse T wave flattening -CXR: hyperinflation may be seen in setting of COPD. No focal consolidation. Bilateral lower lobe nodular opacities favored to represent nipple shadows. -f/u repeat EKG q6h -f/u ANTONI panel x2 q6h -telemetry monitoring Uncontrolled HTN -pt somewhat of a poor historian, unable to provide information on meds -says he has switched BP meds alot, switched to Losartan this week -start Losartan 50 mg PO daily, amlodipine 10 PO daily -continue to monitor Hypokalemia -Kdur 20 given in ED, IVF banana bag -AM labs, continue to monitor -replete as needed HIV -f/u T lymphocyte panel PPx, Diet, Disposition -DVT ppx: lovenox 40 daily; DVT risk score = 2 -Diet: heart healthy, low salt diet Case discussed with Dr. Yoli Torres DO, PGY-1
[2018-06-25] MEDS: Potassium Chloride 20 mEq ER Tab PO SCH (18:12)
[2018-06-25] MEDS: Enoxaparin 40 mg Syringe SC SCH (18:15)
[2018-06-25 20:19] LABS: CK-MB 1.25 ng/mL (0.0-3.38); TROPONIN I 0.02 ng/mL (0.00-0.120)
[2018-06-25 23:02] LABS: SPERM URINE OCC /hpf; SQUAMOUS EPITHIAL 1 /hpf (0-5); URINE BACTERIA OCC (<OCC); URINE BILIRUBIN NEGATIVE (NEGATIVE); URINE BLOOD NEGATIVE (NEGATIVE); URINE CLARITY Clear (Clear); URINE COLOR Yellow (YELLOW); URINE GLUCOSE (UA) NORMAL (Normal); URINE LEUKOCYTE ESTERASE TRACE Leu/uL (Negative); URINE PROTEIN 1+ mg/dL (NEGATIVE); URINE UROBILINOGEN NORMAL mg/dL (0.2-1.0)
[2018-06-25 23:40] LABS: BARBITURATES, UR NEGATIVE (NEGATIVE); BENZODIAZEPINES, UR NEGATIVE (NEGATIVE); OPIATES, UR NEGATIVE (NEGATIVE); PHENCYCLIDINE, UR NEGATIVE (NEGATIVE)
[2018-06-26 02:36] LABS: CK-MB 1.23 ng/mL (0.0-3.38); TROPONIN I 0.023 ng/mL (0.00-0.120)
[2018-06-26 08:04] VITALS: BP 158/87; RESP 18; TEMP 98; O2SAT 97
[2018-06-26 08:50] VITALS: PULSE 49
[2018-06-26 09:00] LABS: BASO % 0.3 % (0.0-2.0); EOS # 0.1 K/uL (0.0-0.7); EOS % 2.6 % (0.0-4.0); HEMOGLOBIN 13.7 g/dL (12.0-18.0); LYMPH % 46.3 % (20.0-40.0); MEAN CELL VOLUME 86.7 fL (80.0-94.0); MEAN CORPUSCULAR HEMOGLOBIN 29.3 pg (27.0-31.0); MEAN CORPUSCULAR HGB CONC 33.8 g/dL (33.0-37.0); MEAN PLATELET VOLUME 10.4 fL (7.2-11.7); MONO # 0.4 K/uL (0.0-0.8); MONO % 10.4 % (0.0-10.0); NEUT # 1.7 K/uL (1.8-7.0); NEUT % 40.4 % (50.0-75.0); NRBC % 0.1 % (0.0-2.0); RBC 4.68 Mil/uL (4.40-5.90); WHITE BLOOD COUNT 4.2 K/uL (4.8-10.8)
[2018-06-26 09:20] LABS: ALB/GLOB RATIO 0.9 (1.0-2.1); ALBUMIN 3.3 g/dL (3.5-5.0); ALT/SGPT 21 U/L (21-72); AST/SGOT 27 U/L (17-59); BLOOD UREA NITROGEN 13 mg/dL (9-20); GFR NON-AFRICAN AMERICAN > 60
[2018-06-26] MEDS ORDERED: Potassium Chloride 20 mEq/15 ml LIQ UD PO SCH (09:30)
[2018-06-26] MEDS: Potassium Chloride 20 mEq ER Tab PO SCH (10:19)
[2018-06-26] MEDS: Enoxaparin 40 mg Syringe SC SCH (10:20)
--- NOTE | 2018-06-26 11:15 | CP.PCM.DIS ---
Provider - Provider Date of Admission: 06/25/18 15:39 Attending physician: Johny Kent Jr, MD Time Spent in preparation of Discharge (in minutes): 70 Hospital Course - Lab Results Lab Results: Most Recent Lab Values WBC 4.2 K/uL (4.8-10.8) L 06/26/18 08:48 RBC 4.68 Mil/uL (4.40-5.90) 06/26/18 08:48 Hgb 13.7 g/dL (12.0-18.0) 06/26/18 08:48 Hct 40.6 % (35.0-51.0) 06/26/18 08:48 MCV 86.7 fL (80.0-94.0) 06/26/18 08:48 MCH 29.3 pg (27.0-31.0) 06/26/18 08:48 MCHC 33.8 g/dL (33.0-37.0) 06/26/18 08:48 RDW 14.0 % (11.5-14.5) 06/26/18 08:48 Plt Count 189 K/uL (130-400) 06/26/18 08:48 MPV 10.4 fL (7.2-11.7) 06/26/18 08:48 Neut % (Auto) 40.4 % (50.0-75.0) L 06/26/18 08:48 Lymph % (Auto) 46.3 % (20.0-40.0) H 06/26/18 08:48 [place] % (Auto) 10.4 % (0.0-10.0) H 06/26/18 08:48 Eos % (Auto) 2.6 % (0.0-4.0) 06/26/18 08:48 Baso % (Auto) 0.3 % (0.0-2.0) 06/26/18 08:48 Neut # (Auto) 1.7 K/uL (1.8-7.0) L 06/26/18 08:48 Lymph # (Auto) 2.0 K/uL (1.0-4.3) 06/26/18 08:48 [place] # (Auto) 0.4 K/uL (0.0-0.8) 06/26/18 08:48 Eos # (Auto) 0.1 K/uL (0.0-0.7) 06/26/18 08:48 Baso # (Auto) 0.0 K/uL (0.0-0.2) 06/26/18 08:48 PT 11.4 SECONDS (9.7-12.2) 06/25/18 14:05 INR 1.0 06/25/18 14:05 APTT 30 SECONDS (21-34) 06/25/18 14:05 Sodium 137 mmol/L (132-148) 06/26/18 08:48 Potassium 3.3 mmol/L (3.6-5.2) L 06/26/18 08:48 Chloride 102 mmol/L (98-107) 06/26/18 08:48 Carbon Dioxide 33 mmol/L (22-30) H 06/26/18 08:48 Anion Gap 6 (10-20) L 06/26/18 08:48 BUN 13 mg/dL (9-20) 06/26/18 08:48 Creatinine 1.2 mg/dL (0.8-1.5) 06/26/18 08:48 Est GFR ( Amer) > 60 06/26/18 08:48 Est GFR (Non-Af Amer) > 60 06/26/18 08:48 Random Glucose 97 mg/dL (75-110) 06/26/18 08:48 Calcium 8.0 mg/dl (8.6-10.4) L 06/26/18 08:48 Phosphorus 2.5 mg/dL (2.5-4.5) 06/26/18 08:48 Magnesium 1.8 mg/dL (1.6-2.3) 06/26/18 08:48 Total Bilirubin 0.6 mg/dL (0.2-1.3) 06/26/18 08:48 AST 27 U/L (17-59) 06/26/18 08:48 ALT 21 U/L (21-72) 06/26/18 08:48 Alkaline Phosphatase 60 U/L (38-126) 06/26/18 08:48 Total Creatine Kinase 102 U/L (55-170) 06/26/18 00:00 CK-MB (Mass) 1.23 ng/mL (0.0-3.38) 12/19/18 00:00 Troponin I 0.0230 ng/mL (0.00-0.120) 06/26/18 00:00 NT-Pro-B Natriuret Pep 255 pg/mL (0-900) 06/25/18 14:05 Total Protein 6.9 g/dL (6.3-8.3) 06/26/18 08:48 Albumin 3.3 g/dL (3.5-5.0) L 06/26/18 08:48 Globulin 3.6 gm/dL (2.2-3.9) 06/26/18 08:48 Albumin/Globulin Ratio 0.9 (1.0-2.1) L 06/26/18 08:48 Urine Color Yellow (YELLOW) 06/25/18 22:46 Urine Clarity Clear (Clear) 06/25/18 22:46 Urine pH 7.0 (5.0-8.0) 06/25/18 22:46 Ur Specific [place] 1.017 (1.003-1.030) 06/25/18 22:46 Urine Protein 1+ mg/dL (NEGATIVE) H 06/25/18 22:46 Urine Glucose (UA) Normal mg/dL (Normal) 06/25/18 22:46 Urine Ketones Negative mg/dL (NEGATIVE) 06/25/18 22:46 Urine Blood Negative (NEGATIVE) 06/25/18 22:46 Urine Nitrate Negative (NEGATIVE) 06/25/18 22:46 Urine Bilirubin Negative (NEGATIVE) 06/25/18 22:46 Urine Urobilinogen Normal mg/dL (0.2-1.0) 06/25/18 22:46 Ur Leukocyte Esterase Trace Kirit/uL (Negative) 06/25/18 22:46 Urine WBC (Auto) 10 /hpf (0-5) H 06/25/18 22:46 Urine RBC (Auto) 2 /hpf (0-3) 06/25/18 22:46 Ur Squamous Epith Cells 1 /hpf (0-5) 06/25/18 22:46 Urine Bacteria Occ (<OCC) H 06/25/18 22:46 Urine Sperm (Auto) Occ /hpf (NONE) 06/25/18 22:46 Urine Opiates Screen Negative (NEGATIVE) 06/25/18 22:46 Urine Methadone Screen Negative (NEGATIVE) 06/25/18 22:46 Ur Barbiturates Screen Negative (NEGATIVE) 06/25/18 22:46 Ur Phencyclidine Scrn Negative (NEGATIVE) 06/25/18 22:46 Ur Amphetamines Screen Negative (NEGATIVE) 06/25/18 22:46 U Benzodiazepines Scrn Negative (NEGATIVE) 06/25/18 22:46 U Oth Cocaine Metabols Negative (NEGATIVE) 06/25/18 22:46 U Cannabinoids Screen Negative (NEGATIVE) 06/25/18 22:46 Alcohol, Quantitative < 10 mg/dl (0-10) 06/25/18 14:05 - Hospital Course Hospital Course: Upon Admission: Patient is a 57 year old male with past medical history of HTN, HIV, and alcohol abuse presenting to ED from [facility] for uncontrolled hypertension and hypokalemia. Patient states he was at clinic to obtain medical clearance for substance abuse program. Blood pressure was elevated, labs were abnormal, and he was told to come to the ED. He denies any chest pain, palpitations, shortness of breath, or dizziness currently. When asked if he felt chest pain or palpitations while at the clinic, he denied. No other acute somatic complaints at this time. Denies fevers/chills, headaches, dizziness, abdominal pain, nausea/vomiting/diarrhea/constipation, dysuria, or changes in stool. Pt was admitted for uncontrolled HTN. Hospital Course: Troponins x3 were negative, and EKG showed no changes. Pt was hypokalemic, so potassium was repleted. Pt was given antihypertensives to control blood pressure. The following day, the patient's blood pressure improved and he was deemed stable for discharge. Upon Discharge: Pt was deemed stable for discharge. He was instructed to continue his home metoprolol, norvasc, hydralazine, valsartan/HCTZ and anti-viral medications. Pt was instructed to follow up with [facility] and to inquire regarding his CD4 count as the pt was unaware of the value. Pt understood instructions and agreed. Discharge Exam - Head Exam Head Exam: ATRAUMATIC, NORMAL INSPECTION, NORMOCEPHALIC - Eye Exam Eye Exam: EOMI, Normal appearance, PERRL Pupil Exam: NORMAL ACCOMODATION - ENT Exam ENT Exam: Mucous Membranes Moist - Respiratory Exam Respiratory Exam: Clear to PA & Lateral, NORMAL BREATHING PATTERN. absent: Rales, Rhonchi, Wheezes - Cardiovascular Exam Cardiovascular Exam: REGULAR RHYTHM, +S1, +S2. absent: Gallop, Rubs, Systolic Murmur - GI/Abdominal Exam GI & Abdominal Exam: Normal Bowel Sounds, Soft. absent: Distended, Firm, Tenderness - Extremities Exam Extremities exam: normal inspection - Neurological Exam Neurological exam: Alert, Oriented x3 - Psychiatric Exam Psychiatric exam: Normal Affect, Normal Mood - Skin Skin Exam: Normal Color Discharge Plan - Discharge Medications Prescriptions: amLODIPine [Norvasc] 10 mg PO DAILY #30 tab Hydralazine HCl 100 mg PO Q12H #60 tablet Valsartan/Hydrochlorothiazide [Valsartan-Hctz 160-25 mg Tab] 1 tab PO DAILY #50 tablet - Follow Up Plan Condition: GUARDED Disposition: HOME/ ROUTINE Additional Instructions: Please follow up with your primary care doctor at the [facility] within 5 days. Please ask about your CD4 count. Please take your medications as prescribed. Take care and be well.
--- NOTE | 2018-06-26 12:19 | CARD ---
APPROVED REPORT Date of service: 06/25/2018 EKG Measurement Heart [id number] <Conclusion> Sinus bradycardia Nonspecific T wave abnormality Abnormal ECG
--- NOTE | 2018-06-26 12:21 | CARD ---
APPROVED REPORT Date of service: 06/25/2018 EKG Measurement Heart [id number] <Conclusion> Sinus bradycardia with sinus arrhythmia Minimal voltage criteria for LVH, may be normal variant Possible Anterior infarct, age undetermined Abnormal ECG
[2018-06-27] MEDS ORDERED: Influenza Vaccine 60 MCG/0.5 ML SYR (3 yr & up) IM ONE (10:00)
--- NOTE | 2018-06-27 11:11 | CARD ---
APPROVED REPORT Date of service: 06/26/2018 EKG Measurement Heart [id number] <Conclusion> Marked sinus bradycardia Abnormal ECG
== END 2018-06-26 15:04 | disposition home or self-care (01) ==
LOC: C.ER 13:32 → C.9E 15:39 → C.6T 16:02
PROVIDERS: ADMIT Internal Medicine; ATTEND Internal Medicine
DX: I10 Essential (primary) hypertension (principal); F10.10 Alcohol abuse, uncomplicated; I25.10 Atherosclerotic heart disease of native coronary artery without angina pectoris; B20 Human immunodeficiency virus [HIV] disease; R00.1 Bradycardia, unspecified; R07.89 Other chest pain; E87.6 Hypokalemia; Z87.891 Personal history of nicotine dependence
CPT/HCPCS: 36415; 71046; 80053; 80320; 80324; 80345; 80346; 80349; 80353; 80358; 80361; 81001; 83735; 83880; 83992; 84100; 84484; 85025; 85610; 85730; 86359; 86360; 93005; 99285; G0378; J1650; J3411; J3480; J7030

== ENCOUNTER 2018-12-06 00:14 | Emergency (ER) | payer MEDICAID ==
[2018-12-06 00:15] VITALS: BMI 30.8
[2018-12-06 00:44] VITALS: TEMP 98.2
--- NOTE | 2018-12-06 01:33 | C.PDOC ---
History Of Present Illness Patient was found at [facility] intoxicated. He states that he has been drinking and wants a place to stay. Denies suicidal and homicidal ideations. Time Seen by Provider: 12/06/18 00:50 Chief Complaint (Nursing): Substance Abuse History Per: Patient History/Exam Limitations: no limitations Onset/Duration Of Symptoms: Hrs Current Symptoms Are (Timing): Still Present Suicide/Self Injury Attempted (Context): None Modifying Factor(s): Alcohol Severity: None Pain Scale Rating Of: 0 Associated Symptoms: denies: Suicidal Thoughts, Suicidal Plan Involuntary Hold By: None Recent travel outside of the [place]: No Past Medical History Reviewed: Historical Data, Nursing Documentation, Vital Signs Vital Signs: Last Vital Signs Temp 98.2 F 12/06/18 00:41 Pulse 65 12/06/18 00:41 Resp 20 12/06/18 00:41 BP 120/66 12/06/18 00:41 Pulse Ox 100 12/06/18 00:41 Primary Care Provider: FAMILY PROVIDER,NO - Medical History PMH: HIV, HTN - [facility] CONTINUOUS INVASIVE MECHANICAL VENTILATION =/>96 CONSEC HRS (08/24/14) INSERT ENDOTRACHEAL TUBE (08/24/14) Family History: States: CAD - Social History Hx Tobacco Use: Yes Hx Alcohol Use: Yes (daily) Hx Substance Use: No - Immunization History Hx Tetanus Toxoid Vaccination: No Hx Influenza Vaccination: No Hx Pneumococcal Vaccination: No Review Of Systems Constitutional: Negative for: Fever, Chills, Sweats Cardiovascular: Negative for: Chest Pain, Palpitations Respiratory: Negative for: Cough, Shortness of Breath Gastrointestinal: Negative for: Nausea, Vomiting, Abdominal Pain, Diarrhea Neurological: Negative for: Weakness, Numbness Physical Exam - Physical Exam Appears: Non-toxic, No Acute Distress, Other (ETOH on breath, no sign of injury) Skin: Warm, Dry Head: Normacephalic Eye(s): bilateral: Normal Inspection Oral Mucosa: Moist Neck: Trachea Midline, Supple Chest: Symmetrical Cardiovascular: Rhythm Regular Respiratory: No Rales, No Rhonchi, No Wheezing Gastrointestinal/Abdominal: Soft, No Tenderness Neurological/Psych: Oriented x3 ED Course And Treatment O2 Sat by Pulse Oximetry: 100 (RA) Pulse Ox Interpretation: Normal Progress Note: Fingerstick done. Reevaluation Time: 04:29 Reassessment Condition: Improved Disposition Counseled Patient/Family Regarding: Studies Performed, Diagnosis, Need For Followup - Disposition Referrals: [facility] [Outside] Disposition: HOME/ ROUTINE Disposition Time: 04:29 Condition: FAIR Instructions: Alcohol Abuse and Alcoholism (DC) Forms: [facility] ([place]) - Clinical Impression Clinical Impression: Alcohol abuse, Alcohol intoxication - Scribe Statement The provider has reviewed the documentation as recorded by the Scribe (Elyssa Sunshine) All medical record entries made by the Scribe were at my direction and personally dictated by me. I have reviewed the chart and agree that the record accurately reflects my personal performance of the history, physical exam, medical decision making, and the department course for this patient. I have also personally directed, reviewed, and agree with the discharge instructions and disposition.
[2018-12-06 05:36] VITALS: BP 138/58; PULSE 88; RESP 22; O2SAT 98
== END 2018-12-06 05:48 | disposition home or self-care (01) ==
LOC: C.ER 00:14
DX: F10.129 Alcohol abuse with intoxication, unspecified (principal); Y90.9 Presence of alcohol in blood, level not specified